=== PATIENT | male | born 1970 | race Two or more races ===

== ENCOUNTER 2020-12-30 17:45 | Emergency (ER) | payer MEDICAID, SELFPAY ==
--- NOTE | 2020-12-30 | ECG_ITS ---
Test Reason : CHEST PAIN Blood Pressure : / mmHG Vent. Rate : 098 BPM Atrial Rate : 098 BPM P-R Int : 142 ms QRS Dur : 080 ms QT Int : 328 ms P-R-T Axes : 039 053 007 degrees QTc Int : 418 ms Normal sinus rhythm Normal ECG No previous ECGs available Referred By: Generic ED Physician Electronically Signed By:ESPERANZA ROBLERO
--- NOTE | ~2020-12-30 | XR_ITS ---
EXAMINATION: XR CHEST CLINICAL INFORMATION: Chest pain and shortness of breath COMPARISON: None TECHNIQUE: Frontal view of the chest was obtained. FINDINGS: No significant abnormality is noted involving the heart, lungs, mediastinum, bony thorax or soft tissues. XR/XR chest 1V IMPRESSION: Unremarkable examination.
[2020-12-30 17:50] VITALS: BP 151/92; PULSE 104; RESP 20; TEMP 36.1; O2SAT 96; BMI 44.4
--- NOTE | 2020-12-30 20:11 | ED.CHESTPAIN ---
HPI - Chest Pain General Chief Complaint: Chest Pain Stated Complaint: chest pain,SOB Time Seen by Provider: 12/30/20 20:10 History of Present Illness HPI narrative: Patient is a 50-year-old male presents today with having chest pain. The chest pain is mid chest. It has been going on for days. Patient denies any change with movement. It has no specific trigger. It goes away on its own. Patient denies any leg swelling. No history of blood clots. Patient denies any history of diabetes, hypertension, mi, family history of NE. no coughing or congestion or upper respiratory symptoms. No diaphoresis. No dizziness no nausea no vomiting. No diaphoresis with the pain. The pain is constant. It is reproducible with touch Related Data Allergies Allergy/AdvReac Type Severity Reaction Status Date / Time No Known Allergies Allergy Verified 12/30/20 17:56 Review of Systems Review of Systems: Constitutional: No Weight loss, No Fever, No Chills, No Night Sweats, No Fatigue, No Malaise ENT/Mouth: No Hearing loss, No Ear Pain, No Nasal Congestion, No Sinus Pain, No Hoarseness, No sore throat, No Rhinorrhea, No Swallowing Difficulty Eyes: No Eye Pain, No Swelling, No Redness, No Foreign Body, No Discharge, No Vision Changes Cardiovascular: Positive Chest Pain, No SOB, No Dyspnea on Exertion, No Orthopnea, No Edema, No Palpitations Respiratory: No Cough, No Sputum, No Wheezing, No Smoke Exposure, No Dyspnea Gastrointestinal: No Nausea, No Vomiting, No Diarrhea, No Constipation, No abdominal Pain, No Hematochezia, No Melena Genitourinary: no irregular bleeding, No Dysuria, No Urinary Frequency, No Hematuria, No Urinary Incontinence, No Urgency, No Flank Pain, No Urinary Flow Changes, No Hesitancy Musculoskeletal: No joint pain, No Myalgias, No Joint Swelling Skin: No Skin Lesions, No rash Neuro: No Weakness, No Numbness, No Paresthesias, No Loss of Consciousness, No Dizziness, No Headache Psych: No Anxiety/Panic, No Depression, No SI/HI/AH/VH, No Social Issues, Heme/Lymph: No Bruising, No Bleeding,No Lymphadenopathy Endocrine: No Polyuria, No Polydipsia, No Temperature Intolerance [facility] Social History Social History Advance Directives: No Advance Directives Information Provided: Yes Physical Exam Vital Signs: Vital Signs: Last Vital Signs Temp 97 F 12/30/20 17:50 Pulse 104 H 12/30/20 17:50 Resp 20 12/30/20 17:50 BP 151/92 H 12/30/20 17:50 Pulse Ox 96 12/30/20 17:50 Body Mass Index 44.4 Appearance: Alert. Oriented X3. No acute distress. Eyes: Pupils equal, round and reactive to light. ENT: Pharynx normal. Neck: Normal inspection. Neck supple. No lymph nodes noted. No crepitus CVS: Normal heart rate and rhythm. Pulses normal. Normal S1 and S2 Respiratory: No respiratory distress. Breath sounds normal. No Wheezing. No rales Abdomen: Soft and nontender. No rigidity. No distention. good BS x4 Skin: Skin warm and dry. Normal skin color. Normal skin turgor. Extremities: No lower extremity edema. Neurovascular intact to all extremities. No Lacerations. No Rash Neuro: Oriented X 3. No motor deficit. No sensory deficit. Moving all extermities. No slurred speech MDM - Chest Pain MDM Narrative Medical decision making narrative: Patient well-appearing no acute distress. EKG is normal. Does not have any significant cardiac risk factor. No history of diabetes, hypertension, mi, family history of NE. No history of smoking. Patient's pain is atypical. He is 50 years of age. His troponin is negative his heart score is less than 3 will discharge patient home. Chest x-ray showed no pneumonia no pneumothorax. Patient's pain atypical for pulmonary emboli. There is no leg swelling. Patient has no risk factors for PE. If his troponin is negative will discharge patient home Patient's cardiac enzyme is negative. Well-appearing. Will discharge patient home. Unlikely secondary to ACS. Medical Records Data Attestation: I reviewed the patient's medical records. Lab Data Attestation: I reviewed the patient's lab results. Result diagrams: 12/30/20 21:22 12/30/20 21:22 Labs: Lab Results 12/30/20 12/30/20 12/30/20 Range/Units 21:22 21:22 21:22 WBC 10.6 (4.8-10.8) X10*3/uL RBC 5.24 (4.60-5.80) X10*6/uL Hgb 14.5 (14.0-18.0) g/dl Hct 44.9 (42-52) % MCV 85.7 (80-98) fL MCH 27.7 (27.0-33.0) pg MCHC 32.3 (31.0-36.0) g/dl RDW 14.6 (11.0-16.0) % Plt Count 265 (160-400) X10*3/uL MPV 9.9 (9.4-12.4) fL Immature Gran % (Auto) 0.7 H (0.0-0.4) % Neut % (Auto) 64.2 (45-73) % Lymph % (Auto) 24.3 (20-40) % Hudspeth % (Auto) 8.1 (2-11) % Eos % (Auto) 2.3 (0-4) % Baso % (Auto) 0.4 (0-2) % Lymph # (Auto) 2.6 (1.2-4.9) X10*3/uL Hudspeth # (Auto) 0.9 (0.1-1.2) X10*3/uL Eos # (Auto) 0.2 (0.0-0.4) X10*3/uL Baso # (Auto) 0.0 (0.0-0.2) X10*3/uL Abs Immat Gran (auto) 0.07 H (0.00-0.03) X10*3/uL Absolute Neuts (auto) 6.8 (2.0-8.3) X10*3/uL Absolute Nucleated RBC 0.000 (0.0-0.012) X10*3/uL Nucleated RBC % (auto) 0.0 (0.0-0.2) /100WBC Hold Blue Top SEE NOTE Sodium 139 (135-145) mmol/L Potassium 4.0 (3.3-5.1) mmol/L Chloride 102 (96-108) mmol/L Carbon Dioxide 27 (22-29) mmol/L Anion Gap 14 (12-20) BUN 11 (9-16) mg/dL Creatinine 1.09 (0.5-1.4) mg/dL Estim Creat Clear Calc 110.2 Estimated GFR > 60 Random Glucose 100 (60-115) mg/dL Calcium 9.5 (8.4-10.2) mg/dL Troponin I High Sens (<3.5-35.0) ng/L 12/30/20 Range/Units 21:22 WBC (4.8-10.8) X10*3/uL RBC (4.60-5.80) X10*6/uL Hgb (14.0-18.0) g/dl Hct (42-52) % MCV (80-98) fL MCH (27.0-33.0) pg MCHC (31.0-36.0) g/dl RDW (11.0-16.0) % Plt Count (160-400) X10*3/uL MPV (9.4-12.4) fL Immature Gran % (Auto) (0.0-0.4) % Neut % (Auto) (45-73) % Lymph % (Auto) (20-40) % Hudspeth % (Auto) (2-11) % Eos % (Auto) (0-4) % Baso % (Auto) (0-2) % Lymph # (Auto) (1.2-4.9) X10*3/uL Hudspeth # (Auto) (0.1-1.2) X10*3/uL Eos # (Auto) (0.0-0.4) X10*3/uL Baso # (Auto) (0.0-0.2) X10*3/uL Abs Immat Gran (auto) (0.00-0.03) X10*3/uL Absolute Neuts (auto) (2.0-8.3) X10*3/uL Absolute Nucleated RBC (0.0-0.012) X10*3/uL Nucleated RBC % (auto) (0.0-0.2) /100WBC Hold Blue Top Sodium (135-145) mmol/L Potassium (3.3-5.1) mmol/L Chloride (96-108) mmol/L Carbon Dioxide (22-29) mmol/L Anion Gap (12-20) BUN (9-16) mg/dL Creatinine (0.5-1.4) mg/dL Estim Creat Clear Calc Estimated GFR Random Glucose (60-115) mg/dL Calcium (8.4-10.2) mg/dL Troponin I High Sens < 3.5 (<3.5-35.0) ng/L Discharge Plan Discharge Clinical Impression: Chest pain Patient Disposition: Home, Self-Care Instructions: Chest Pain (ED) Referrals: Physician,None [Primary Care Provider] - 2 days (your doctor. Small risk of cardiac event still exists. Please closely follow-up with your doctor. The heart enzyme was negative.)
[2020-12-30 21:27] LABS: MANUAL DIFF FLAG NO
[2020-12-30 21:31] LABS: Basophils Percent Auto 0.4 % (0-2); Eosinophils Absolute Auto 0.2 X10*3/uL (0.0-0.4); Eosinophils Percent Auto 2.3 % (0-4); Hematocrit 44.9 % (42-52); Hemoglobin 14.5 g/dl (14.0-18.0); Imm Gran Abs Auto 0.07 X10*3/uL (0.00-0.03); Imm Gran Pct Auto 0.7 % (0.0-0.4); Lymphocytes Absolute Auto 2.6 X10*3/uL (1.2-4.9); Lymphocytes Percent Auto 24.3 % (20-40); Mean Corpuscular HGB Conc 32.3 g/dl (31.0-36.0); Mean Corpuscular Hemoglobin 27.7 pg (27.0-33.0); Mean Corpuscular Volume 85.7 fL (80-98); Mean Platelet Volume 9.9 fL (9.4-12.4); Monocytes Absolute Auto 0.9 X10*3/uL (0.1-1.2); Monocytes Percent Auto 8.1 % (2-11); Neutrophils Absolute Auto 6.8 X10*3/uL (2.0-8.3); Neutrophils Percent Auto 64.2 % (45-73); Platelet Count 265 X10*3/uL (160-400); Red Blood Count 5.24 X10*6/uL (4.60-5.80); Red Cell Distribution Width 14.6 % (11.0-16.0); White Blood Count 10.6 X10*3/uL (4.8-10.8)
[2020-12-30 21:59] LABS: Anion Gap 14 (12-20); Blood Urea Nitrogen 11 mg/dL (9-16); Calcium 9.5 mg/dL (8.4-10.2); Carbon Dioxide 27 mmol/L (22-29); Chloride 102 mmol/L (96-108); Creatinine Clr Calc Pharmacy 110.2; Estimated Glomerular Filt Rate > 60; Glucose Random 100 mg/dL (60-115); Sodium 139 mmol/L (135-145)
[2020-12-30 22:06] LABS: Troponin-I High Sensitivity < 3.5 ng/L (<3.5-35.0)
== END 2020-12-30 22:46 | disposition home or self-care (01) ==
PROVIDERS: Emergency Provider Emergency Medicine Emergency Medical Services
DX: R07.9 Chest pain, unspecified (principal)
CPT/HCPCS: 36415; 71045; 80048; 84484; 85025; 93005; 99283

== ENCOUNTER 2021-12-28 10:05 | Outpatient (REF) | payer MEDICAID, SELFPAY ==
--- NOTE | ~2021-12-28 | US_ITS ---
EXAMINATION: US ABDOMEN LIMITED CLINICAL INFORMATION: Abdominal pain-lump. Rule out hernia. COMPARISON: None TECHNIQUE: Real-time imaging of the umbilical region. FINDINGS: Chair Finisher does identify any area of violation of the fascia. This is in the umbilical region. Likely omental fat extends beyond this into the subcutaneous fat. The orifice is measuring up to 2.9 cm. No suspicious fluid collection. US/US abdomen limited IMPRESSION: Findings as described above. This would be consistent with paraumbilical or umbilical herniation of omental fat.
== END 2021-12-28 10:06 | disposition home or self-care (01) ==
LOC: HO.HMGCX 10:05
PROVIDERS: Visit Provider Internal Medicine
DX: K42.9 Umbilical hernia without obstruction or gangrene (principal)
CPT/HCPCS: 76705

== ENCOUNTER 2022-01-06 09:38 | Day surgery (SDC) | payer MEDICAID, SELFPAY ==
[2021-12-30 13:01] VITALS: BMI 46.2
--- NOTE | 2022-01-05 08:50 | P.CONAN_ITS ---
Documented by User: Khushi Lutz NP 01/05/22 08:50 HPI - Anesthesia Eval Consult details Narrative: 51yo M for Colonoscopy [facility] Past Medical History Medical History Diabetes TRAVIS (obstructive sleep apnea) Surgical History Surgical History History of eye surgery Social History Social History Patient Tobacco Use Status: Former Tobacco user Quit Date: >10 yr ago Tobacco use type: Cigarette Smoked in Last 30 Days: No Use of substances other than those prescribed or required for medical reasons: Yes Are you DNR?: No Advance Directives: No Advance Directives Information Provided: Yes Recently lost weight without trying: No Nutrition Risks: No Nutritional Risk Meds Allergies Allergy/AdvReac Type Severity Reaction Status Date / Time No Known Allergies Allergy Verified 12/30/20 17:56 Home Medications Medication Instructions Recorded Confirmed Last Taken Type melatonin 10 mg capsule 1 cap PO BEDTIME 12/30/21 12/30/21 Unknown History metformin 500 mg tablet,extended 500 mg PO BID 12/30/21 12/30/21 Unknown History release 24 hr simethicone 180 mg capsule 1 cap PO QID 12/30/21 12/30/21 Unknown History Exam Exam Date and Time: January 05, 2022 0850 Height,Weight and Vital Signs: Height 5 ft 8 in Weight 137.892 kg Assessment and Plan Assessment Anesthesia Assessment: Chart Reviewed Documented by User: Jazlyn Mac MD 01/06/22 10:53 [facility] Active Problems Active Problems: Increased BMI 44.9 TRAVIS. Has not received CPAP machine yet Past Medical History Medical History Diabetes TRAVIS (obstructive sleep apnea) Family History Family history of problems with anesthesia: No Surgical History Surgical History History of eye surgery History of Problems with Anesthesia: No Social History Social History Patient Tobacco Use Status: Former Tobacco user Quit Date: >10 yr ago Tobacco use type: Cigarette Smoked in Last 30 Days: No Use of substances other than those prescribed or required for medical reasons: Yes Are you DNR?: No Advance Directives: No Advance Directives Information Provided: Yes Recently lost weight without trying: No Nutrition Risks: No Nutritional Risk Meds Allergies Allergy/AdvReac Type Severity Reaction Status Date / Time No Known Allergies Allergy Verified 12/30/20 17:56 Home Medications Medication Instructions Recorded Confirmed Last Taken Type melatonin 10 mg capsule 1 cap PO BEDTIME 12/30/21 12/30/21 Unknown History metformin 500 mg tablet,extended 500 mg PO BID 12/30/21 12/30/21 Unknown History release 24 hr simethicone 180 mg capsule 1 cap PO QID 12/30/21 12/30/21 Unknown History Exam Height,Weight and Vital Signs: Height 5 ft 8 in Weight 137.892 kg Vital Signs Temp Pulse Resp BP Pulse Ox 01/06/22 10:52 98.2 F 87 16 129/86 96 Pertinent Lab Results Pertinent Lab Results: Lab Results 01/06/22 Range/Units 10:17 POC Glucose 128 H (60-115) mg/dL Airway Mallampati Class: III TM Dist: >3cm Neck ROM: Full Loose/Missing/Broken Teeth: No Heart: RRR Lungs: CTAB Assessment and Plan Assessment Anesthesia Assessment: Anesthesia Plan Discussed Final Anesthetic Review Family History of Problems with Anesthesia: No History of Problems with Anesthesia: No NPO: Yes ASA Class: III Final Preanesthetic Review: No Changes in Pt Med Stat, Meds/Allgs Chart Reviewed, Consent Obtained/Reviewed and Anes Risks/Benef Reviewed Patient Risk: Intermediate Procedure Risk: Low Assessment/Block/Sedation in SS: Assess/Block/Sedation-SS Anesthetic Plan Anesthetic Plan: MAC: Disposition: Standard PACU
[2022-01-06 09:54] VITALS: BMI 44.9
[2022-01-06 10:21] LABS: Glucose, Whole Blood 128 mg/dL (60-115)
[2022-01-06] MEDS: Lactated Ringers 1,000 ML 100 ML IVCONT (10:28)
[2022-01-06 10:52] VITALS: BP 129/86; PULSE 87; RESP 16; TEMP 36.8; O2SAT 96
--- NOTE | 2022-01-06 12:00 | P.BOP_ITS ---
Brief Operative Note Date of Service: 01/06/22 Pre-op diagnosis: Screening Post-op diagnosis: other (Mild diverticulosis) Procedure: Colonoscopy to the cecum and TI Surgeon: Emmett Saucedo Anesthesia: MAC Was an Business Development Consultant used for this Procedure?: No Estimated blood loss (mL): 0 Pathology: none sent Condition: stable Disposition: PACU
[2022-01-06 12:01] VITALS: BP 100/60; PULSE 94; RESP 16; TEMP 36.6; O2SAT 97
[2022-01-06 12:15] VITALS: BP 102/71; PULSE 99; RESP 16; O2SAT 97
[2022-01-06 12:27] VITALS: BP 110/78; PULSE 89; RESP 16; TEMP 36.6; O2SAT 97
--- NOTE | 2022-01-06 17:17 | OP_ITS ---
SURGEON: Emmett Saucedo MD INDICATIONS: The patient presents for evaluation of colorectal cancer screening. Full consent was obtained from him for this, including risks of bleeding and perforation. PREOPERATIVE DIAGNOSIS: Colorectal cancer screening. POSTOPERATIVE DIAGNOSIS: PROCEDURE PERFORMED: Colonoscopy to the cecum and terminal ileum. ESTIMATED BLOOD LOSS: COMPLICATIONS: ANESTHESIA: Monitored anesthesia care. ASSISTANTS: SPECIMENS: POSTOPERATIVE DIAGNOSES: Colorectal cancer screening, mild diverticulosis, small internal hemorrhoids. DESCRIPTION OF PROCEDURE: The patient was placed in the left lateral decubitus position. The digital rectal exam revealed no abnormalities. The Olympus video pediatric colonoscope was entered into the rectum and advanced easily to the cecum. Once in the cecum, I did identify normal-appearing cecal pouch with appendiceal orifice and a normal-appearing ileocecal valve. The terminal ileum was cannulated and appeared normal. The scope was withdrawn back in the colon. The entire cecum and ileocecal valve appeared normal. The scope was slowly withdrawn assessing all mucosal surfaces carefully. Preparation was excellent. I did not visualize any sign of polyps, colitis, nor angiodysplasia. There were occasional diverticula in the sigmoid colon. In the rectum, scope was retroflexed visualizing small internal hemorrhoids, but no other pathology. The rectal mucosa appeared normal. The scope was straightened and withdrawn from the patient. He tolerated the procedure well and was returned to recovery area in stable condition. IMPRESSION: 1. Mild diverticulosis. 2. Small internal hemorrhoids. PLAN: Given the negative exam and negative family history, I would recommend a repeat colonoscopy in 10 years for further screening. He will otherwise see me on a p.r.n. basis. MD TOMMY Faust/GUERREROL / [phone]
== END 2022-01-06 13:20 | disposition home or self-care (01) ==
PROVIDERS: PCP Internal Medicine; Visit Provider Internal Medicine
PROC: 0DJD8ZZ Inspection of Lower Intestinal Tract, Via Natural or Artificial Opening Endoscopic (ICD-10-PCS; CPT 45378; principal; 2022-01-06 10:50)
DX: Z12.11 Encounter for screening for malignant neoplasm of colon (principal); K57.30 Diverticulosis of large intestine without perforation or abscess without bleeding; K64.8 Other hemorrhoids; G47.33 Obstructive sleep apnea (adult) (pediatric); E11.9 Type 2 diabetes mellitus without complications; Z79.84 Long term (current) use of oral hypoglycemic drugs; Z79.899 Other long term (current) drug therapy; Z87.891 Personal history of nicotine dependence
CPT/HCPCS: 45378; 82947; J2250

== ENCOUNTER → 2022-03-14 14:55 | Outpatient (BNVA) | payer MEDICAID, SELFPAY | PROVIDERS: PCP Internal Medicine; Referring Provider Internal Medicine; Visit Provider Surgery | DX: K42.9 Umbilical hernia without obstruction or gangrene (principal); Z79.899 Other long term (current) drug therapy | CPT/HCPCS: 99202 ==

== ENCOUNTER 2022-03-27 05:58 | Day surgery (SDC) | payer MEDICAID, SELFPAY ==
[2022-03-22 09:53] VITALS: BMI 47.1
--- NOTE | 2022-03-23 13:34 | HO.ANESPROP2 ---
Documented by User: Khushi Lutz NP 03/23/22 13:34 HPI - Anesthesia Eval Consult details Narrative: 52yo M for Hernia Repair Umbilical with Mesh s/p colo 01/2022 with MAC PMFSH Active Problems Active Problems: All Active Problems (Updated 03/16/22 @ 08:50 by Tato Frederick MD) Umbilical hernia (Acute) Past Medical History Medical History Diabetes TRAVIS (obstructive sleep apnea) Family History Family history of problems with anesthesia: No Surgical History Surgical History H/O colonoscopy History of eye surgery History of Problems with Anesthesia: No Social History Social History Patient Tobacco Use Status: Former Tobacco user Quit Date: >10yr ago Tobacco use type: Cigarette Use of substances other than those prescribed or required for medical reasons: Yes Are you DNR?: No Advance Directives: No Advance Directives Information Provided: Yes (brochure mailed) Advance Directives on File: No Meds Allergies Allergy/AdvReac Type Severity Reaction Status Date / Time No Known Allergies Allergy Verified 03/14/22 15:06 Home Medications Medication Instructions Recorded Confirmed Last Taken Type melatonin 10 mg capsule 1 cap PO BEDTIME 12/30/21 03/22/22 Unknown History metformin 500 mg tablet,extended 500 mg PO BID 12/30/21 03/22/22 Unknown History release 24 hr simethicone 180 mg capsule 1 cap PO QID 12/30/21 03/22/22 Unknown History Exam Exam Date and Time: March 23, 2022 1334 Height,Weight and Vital Signs: Height 5 ft 8 in Weight 140.614 kg Assessment and Plan Assessment Anesthesia Assessment: Chart Reviewed Final Anesthetic Review Family History of Problems with Anesthesia: No History of Problems with Anesthesia: No Documented by User: Jazlyn Mac MD 03/27/22 07:57 [facility] Active Problems Active Problems: All Active Problems (Updated 03/16/22 @ 08:50 by Tato Frederick MD) Umbilical hernia (Acute) Morbid obesity TRAVIS- just started CPAP Machine use Past Medical History Medical History Diabetes TRAVIS (obstructive sleep apnea) Surgical History Surgical History H/O colonoscopy History of eye surgery Social History Social History Patient Tobacco Use Status: Former Tobacco user Quit Date: >10yr ago Tobacco use type: Cigarette Use of substances other than those prescribed or required for medical reasons: Yes Are you DNR?: No Advance Directives: No Advance Directives Information Provided: Yes (brochure mailed) Advance Directives on File: No Meds Allergies Allergy/AdvReac Type Severity Reaction Status Date / Time No Known Allergies Allergy Verified 03/14/22 15:06 Home Medications Medication Instructions Recorded Confirmed Last Taken Type melatonin 10 mg capsule 1 cap PO BEDTIME 12/30/21 03/22/22 Unknown History metformin 500 mg tablet,extended 500 mg PO BID 12/30/21 03/22/22 Unknown History release 24 hr simethicone 180 mg capsule 1 cap PO QID 12/30/21 03/22/22 Unknown History Exam Height,Weight and Vital Signs: Height 5 ft 8 in Weight 140.614 kg Vital Signs Temp Pulse Resp BP Pulse Ox O2 Del Method 03/27/22 06:32 97.8 F 83 18 157/88 H 96 Room Air Pertinent Lab Results Pertinent Lab Results: Lab Results 03/27/22 Range/Units 06:28 POC Glucose 118 H (60-115) mg/dL Airway Mallampati Class: IV (Small mouth opening ) TM Dist: >3cm Neck ROM: Full Loose/Missing/Broken Teeth: Yes (Broken molar bottom right) Heart: RRR Lungs: CTAB Assessment and Plan Assessment Anesthesia Assessment: Anesthesia Plan Discussed Final Anesthetic Review NPO: Yes ASA Class: III Final Preanesthetic Review: No Changes in Pt Med Stat, Meds/Allgs Chart Reviewed, Consent Obtained/Reviewed and Anes Risks/Benef Reviewed Patient Risk: Intermediate Procedure Risk: Low Assessment/Block/Sedation in SS: Assess/Block/Sedation-SS Anesthetic Plan Anesthetic Plan: GA Disposition: Standard PACU
[2022-03-27] VITALS (9 sets, daily range): BP systolic 112–157; BP diastolic 72–96; PULSE 73–89; RESP 14–18; TEMP 36.1–36.6; O2SAT 94–98
[2022-03-27] MEDS: Lactated Ringers 1,000 ML 100 ML IVCONT (06:33)
[2022-03-27 06:47] LABS: Glucose, Whole Blood 118 mg/dL (60-115)
--- NOTE | 2022-03-27 08:17 | MHC.SHP ---
Pre-Procedural Eval Section A Date of Service: 03/27/22 The patient is an INPATIENT: No Changes since office visit: Yes Patient answered all questions; No Cold of Flu in the past 2 weeks, No New Medical Problems and No Changes in Medication The History & Physical has been completed within 30 days and I have reviewed it.: Yes Section B Chief Complaint: hernia Allergies: Allergies Allergy/AdvReac Type Severity Reaction Status Date / Time No Known Allergies Allergy Verified 03/14/22 15:06 Plan Diagnosis/Plan: Unchanged I have reviewed the history and physical and performed a pertinent physical examination on my patient. No changes have occurred unless specified.
--- NOTE | 2022-03-27 08:18 | P.OP_ITS ---
Operative Note Operative Note Date of Service: 03/27/22 Narrative: Preoperative diagnosis: Umbilical hernia Postoperative diagnosis: same Procedure: repair of umbilical hernia with mesh Surgeon: Tato Frederick MD Impregnating Tank Operator: Maeve Huddleston PA-C; MARTITA Luevano Anesthesia: general LMA Indications for procedure: 52-year-old male patient presenting with a gradually enlarging umbilical hernia which is now causing some discomfort. On examination patient has a reducible umbilical hernia measuring approximately 3 cm in diameter. Operative findings: 3 cm fascial defect repaired with a 6.4 cm round Ventralex mesh Specimen: none Estimated blood loss: less than 1 mL Complications: none Procedure details: patient was brought to the OR placed in a supine position. After administering general anesthesia the patient's abdomen was prepped with ChloraPrep and draped in a sterile fashion. A surgical time-out was called the consent confirmed. Patient received preoperative antibiotics and Venodyne boots were in place. Local anesthesia consisting of 0.5% Sensorcaine was then infiltrated around the umbilicus. A curvilinear incision was made in the midline around the umbilicus. This carried out through subcutaneous tissue up to the hernia sac. The hernia sac was then dissected down to the fascial defect. Umbilical skin was dissected off the hernia sac as well down to the fascial defect. The sac was then reduced and a preperitoneal space created using electrocautery dissection. A medium, 6.4 cm round Ventralex mesh was then obtained. This was deployed within the preperitoneal space. It was secured at 4 quadrants using a 1 Tycron suture. the fascia was then closed over the mesh using [id number] 1 Tycron sutures. Wounds were then irrigated with saline solution and suctioned dry. Umbilical skin was then secured to the fascial edge using a 3-0 Polysorb suture. Dermis was reapproximated using interrupted 3-0 Polysorb sutures. Skin was closed using a running subcuticular 4-0 Polysorb suture. Steri-Strips, 2 x 2 gauze and Tegaderm were then applied. The patient tolerated the procedure well. Sponge, instrument, and needle counts reported as correct. The patient was transferred to PACU in stable condition.
[2022-03-27] MEDS: oxyCODONE HCl Immed Release 5 MG TABLET 10 MG PO (09:23)
[2022-03-27] MEDS: Acetaminophen 325 MG TABLET 975 MG PO (09:23)
[2022-03-27] MEDS: fentaNYL citrate/PF 100 MCG/2 ML VIAL 25 MCG IVPUSH (09:25)
== END 2022-03-27 10:48 ==
LOC: HO.SSS 05:59
PROVIDERS: PCP Internal Medicine; Visit Provider Surgery
PROC: (CPT 49585; principal; 2022-03-27 07:30)
DX: K42.9 Umbilical hernia without obstruction or gangrene (principal); G47.33 Obstructive sleep apnea (adult) (pediatric); E11.9 Type 2 diabetes mellitus without complications; Z79.84 Long term (current) use of oral hypoglycemic drugs; Z79.899 Other long term (current) drug therapy; Z87.891 Personal history of nicotine dependence
CPT/HCPCS: 49585; 82947; C1781; J0690; J2250; J2405; J2795; J3010

== ENCOUNTER 2024-05-23 10:44 | Outpatient (REF) | payer MEDICAID, SELFPAY ==
[2024-05-23 12:03] LABS: MANUAL DIFF FLAG NO
[2024-05-23 12:12] LABS: Basophils Absolute Auto 0.1 X10*3/uL (0.0-0.2); Basophils Percent Auto 0.5 % (0-2); Eosinophils Absolute Auto 0.2 X10*3/uL (0.0-0.4); Eosinophils Percent Auto 1.9 % (0-4); Hematocrit 41.8 % (42.0-52.0); Hemoglobin 13.3 g/dl (14.0-18.0); Imm Gran Abs Auto 0.04 X10*3/uL (0.00-0.03); Imm Gran Pct Auto 0.4 % (0.0-0.4); Lymphocytes Absolute Auto 2.6 X10*3/uL (1.2-4.9); Lymphocytes Percent Auto 24.3 % (20-40); Mean Corpuscular HGB Conc 31.8 g/dl (31.0-36.0); Mean Corpuscular Hemoglobin 26.8 pg (27.0-33.0); Mean Corpuscular Volume 84.1 fL (80.0-98.0); Monocytes Absolute Auto 0.9 X10*3/uL (0.1-1.2); Monocytes Percent Auto 8.8 % (2-11); Neutrophils Absolute Auto 6.9 x10*3/uL (2.0-8.3); Neutrophils Percent Auto 64.1 % (45-73); Platelet Count 274 X10*3/uL (160-400); Red Blood Count 4.97 X10*6/uL (4.60-5.80); Red Cell Distribution Width 14.9 % (11.0-16.0); White Blood Count 10.7 X10*3/uL (4.8-10.8)
[2024-05-23 14:08] LABS: Alanine Aminotransferase 24 U/L (0-40); Albumin Level 4.1 g/dL (3.5-5.0); Alkaline Phosphatase 64 U/L (39-117); Anion Gap 12 (12-20); Aspartate Amino Transferase 23 U/L (5-37); Bilirubin Total 0.5 mg/dL (0.0-1.0); Blood Urea Nitrogen 13 mg/dL (9-16); Calcium 9.4 mg/dL (8.4-10.2); Carbon Dioxide 26 mmol/L (22-29); Chloride 104 mmol/L (96-108); Cholesterol 125 mg/dL (<200); Estimated Glomerular Filt Rate > 60; Glucose Fasting 93 mg/dL (60-99); HDL Cholesterol 33 mg/dL (>40); LDL Cholesterol Calculated 76 mg/dL (<100); Potassium 3.3 mmol/L (3.3-5.1); Sodium 139 mmol/L (135-145); Total Protein 7.7 g/dL (6.5-8.0); Triglycerides 80 mg/dL (<150)
[2024-05-25 04:12] LABS: HBS Num1 29.57 mIU/mL (0-7.99); HBc Num1 0.19 S/CO (0.00-0.79); Hepatitis B Core Antibody Nonreactive (Nonreactive); Hepatitis B Surface Antigen Negative (Negative); ~Hepatitis B Surface Antibody REACTIVE (Nonreactive); ~Hepatitis C Antibody Nonreactive (Nonreactive)
== END 2024-05-23 10:45 | disposition home or self-care (01) ==
LOC: HO.CHCLDS 10:44
PROVIDERS: Visit Provider Nurse Practitioner Family
DX: Z00.00 Encounter for general adult medical examination without abnormal findings (principal)
CPT/HCPCS: 36415; 80053; 80061; 85025; 86704; 86706; 86803; 87340